=== PATIENT | male | born 1965 | race Caucasian/White ===

== ENCOUNTER 2022-05-03 12:54 | Emergency (ER) | payer BC ==
[~2022-05-03] VITALS: Ht 177.8 cm; Wt 79.4 kg
[~2022-05-03 12:54] MED LIST: INSU100V9 SUBCUT; METF-379 PO
[2022-05-03 13:24] VITALS: BP_SYST 128
--- NOTE | 2022-05-03 13:24 | NUR ---
Patient triaged and placed in waiting room. VSS and patient appears in no acute distress at this time. Accompanied by SELF, awaiting available bed, and MD notified of need for MSE.
--- NOTE | 2022-05-03 13:50 | NUR ---
ER DR. ZELAYA EXAMINING PT
[2022-05-03] MEDS ORDERED: DIPH25TA62 PO ×2 (14:06→14:28)
[2022-05-03] MEDS ORDERED: NEOM28.37 TP ×2 (14:06→14:28)
[2022-05-03 14:37] VITALS: BP_SYST 121
--- NOTE | 2022-05-03 14:37 | NUR ---
Patient given written and verbal discharge instructions and verbalizes understanding. ER MD discussed with patient the results and treatment provided. Patient in stable condition. ID arm band removed. Rx of BENADRYL AND NEOPORIN given. Patient educated on pain management and to follow up with PMD. Pain Scale 0/10. Opportunity for questions provided and answered. Medication side effect fact sheet provided.
== END 2022-05-03 14:37 | disposition home or self-care (01) ==
LOC: SED 12:54
DX: S30.861A Insect bite (nonvenomous) of abdominal wall, initial encounter (principal); E11.9 Type 2 diabetes mellitus without complications; Z79.899 Other long term (current) drug therapy; W57.XXXA Bitten or stung by nonvenomous insect and other nonvenomous arthropods, initial encounter; Y93.89 Activity, other specified; Y92.89 Other specified places as the place of occurrence of the external cause; Y99.8 Other external cause status
CPT/HCPCS: 99283